=== PATIENT | female | born 1955 | race Hispanic/Latino ===

== ENCOUNTER → 2020-02-18 | Outpatient (CLI) | payer MEDICARE ==
--- NOTE | 2020-02-18 16:43 | Diagnostic Imaging Report ---
Cervical spine complete, 5 views INDICATION: ^[id number] ^[id number] ^CERVICAL SPONDYLOSIS Comparison: None available. Discussion: On lateral views of C7 vertebral body is not well visualized. There is straightening of the normal cervical lordosis. Multilevel disc space narrowing is noted with disc-osteophyte complexes. Negative for abnormal prevertebral soft tissue thickening. Oblique views demonstrate questionable left C6-7 neural foraminal stenosis. The deltoid is intact. C1-C2 articulation is normal and symmetric. Negative for dislocation or significant fracture deformity. Lung apices are clear. Partially visualized surrounding osseous structures and soft tissues are unremarkable. IMPRESSION: Limited radiographic evaluation. 1. Mild to moderate multilevel degenerative changes of the mid to lower cervical spine with straightening of the normal cervical lordosis. 2. No grossly displaced fracture deformity or subluxation. No evidence of anterolisthesis or retrolisthesis in neutral positioning. 3. Question left neural foraminal stenosis at C6-7. Consider follow-up CT or MRI as clinically indicated. Signed by: Keith Parker MD on 02/18/2020 4:40 PM
== END ==
LOC: RAD 15:36
PROVIDERS: ATTEND Internal Medicine
DX: M47.812 Spondylosis without myelopathy or radiculopathy, cervical region (principal)
CPT/HCPCS: 72050

== ENCOUNTER → 2021-03-02 | Outpatient (CLI) | payer MEDICARE | LOC: MAMMO 10:59 | PROVIDERS: ATTEND Internal Medicine | DX: Z12.31 Encounter for screening mammogram for malignant neoplasm of breast (principal) | CPT/HCPCS: 77067 ==

== ENCOUNTER → 2025-03-12 | Outpatient (REF) | payer MEDICARE, OTHER | LOC: CT 15:43 | PROVIDERS: ATTEND Internal Medicine | DX: S09.90XA Unspecified injury of head, initial encounter (principal) | CPT/HCPCS: 70450 ==